=== PATIENT | male | born 1960 ===

== ENCOUNTER 2018-01-02 10:47 | Inpatient (IN) | payer MEDICARE, MEDICAID ==
[2018-01-02 10:48] VITALS: BMI 25.8
--- NOTE | 2018-01-02 12:31 | RAD ---
Date of service: 01/02/2018 HISTORY: SOB COMPARISON: Chest radiograph dated 10/15/2014. FINDINGS: LUNGS: No active pulmonary disease. PLEURA: No significant pleural effusion identified, no pneumothorax apparent. CARDIOVASCULAR: Aortic atherosclerotic calcifications. Cardiomediastinal silhouette stably enlarged OSSEOUS STRUCTURES: Unchanged. VISUALIZED UPPER ABDOMEN: Upper quadrant surgical clips redemonstrated. OTHER FINDINGS: None. IMPRESSION: No active disease.
[2018-01-02 13:00] LABS: BASO % 0.4 % (0.0-2.0); EOS # 0.1 K/uL (0.0-0.7); EOS % 1.2 % (0.0-4.0); HEMOGLOBIN 14.2 g/dL (12.0-18.0); LYMPH % 13.7 % (20.0-40.0); MEAN CELL VOLUME 96.7 fl (80.0-94.0); MEAN CORPUSCULAR HGB CONC 34.2 g/dL (33.0-37.0); MEAN PLATELET VOLUME 9.2 fl (7.2-11.7); MONO # 0.5 K/uL (0.0-0.8); MONO % 6.9 % (0.0-10.0); NEUT # 5.5 K/uL (1.8-7.0); NEUT % 77.8 % (50.0-75.0); NRBC % 0.1 % (0.0-0.0); RBC 4.3 Mil/uL (4.40-5.90); RED CELL DISTRIBUTION WIDTH 13.5 % (11.5-14.5); WHITE BLOOD COUNT 7.1 K/uL (4.8-10.8)
[2018-01-02 13:05] LABS: INR 1.1; PROTHROMBIN TIME 12.6 Seconds (9.8-13.1)
[2018-01-02 13:07] LABS: PARTIAL THROMBOPLASTIN TIME 40.4 Seconds (25.6-37.1)
[2018-01-02 13:08] LABS: ALB/GLOB RATIO 1.3 (1.0-2.1); ALBUMIN 4.2 g/dL (3.5-5.0); ALT/SGPT 50 U/L (21-72); AST/SGOT 83 U/L (17-59); BLOOD UREA NITROGEN 17 mg/dl (9-20); CALCIUM 9.6 mg/dL (8.4-10.2); GFR NON-AFRICAN AMERICAN > 60; LIPASE 49 U/L (23-300)
--- NOTE | 2018-01-02 13:18 | CT ---
Date of service: 01/02/2018 PROCEDURE: CT HEAD WITHOUT CONTRAST. HISTORY: r/o ICH COMPARISON: None available. TECHNIQUE: Axial computed tomography images were obtained through the head/brain without intravenous contrast. Radiation dose: Total exam DLP = 918.51 mGy-cm. This CT exam was performed using one or more of the following dose reduction techniques: Automated exposure control, adjustment of the mA and/or kV according to patient size, and/or use of iterative reconstruction technique. FINDINGS: HEMORRHAGE: No intracranial hemorrhage. BRAIN: No mass effect or edema. No atrophy or chronic microvascular ischemic changes. VENTRICLES: Unremarkable. No hydrocephalus. CALVARIUM: Unremarkable. PARANASAL SINUSES: Unremarkable as visualized. No significant inflammatory changes. MASTOID AIR CELLS: Unremarkable as visualized. No inflammatory changes. OTHER FINDINGS: None. IMPRESSION: No acute intracranial pathology.
--- NOTE | 2018-01-02 13:20 | CT ---
Date of service: 01/02/2018 PROCEDURE: CT Cervical Spine without contrast HISTORY: trauma r/o fx COMPARISON: None available. TECHNIQUE: Axial computed tomography images were obtained of the cervical spine without the use of intravenous contrast. Coronal and sagittal reformatted images were created and reviewed. Radiation dose: Total exam DLP = 374.3 mGy-cm. This CT exam was performed using one or more of the following dose reduction techniques: Automated exposure control, adjustment of the mA and/or kV according to patient size, and/or use of iterative reconstruction technique. FINDINGS: VERTEBRAE: No fracture. Normal alignment. No destructive bony lesion. DISCS/SPINAL CANAL/NEURAL FORAMINA: Multilevel spinal degenerative changes. PARASPINAL SOFT TISSUES: Unremarkable. OTHER FINDINGS: None. IMPRESSION: No acute fracture. Multilevel degenerative changes.
[2018-01-02] MEDS ORDERED: Sodium Chloride 0.9% 1,000 ML IV STA ×2 (14:15→15:17)
--- NOTE | 2018-01-02 15:15 | ED PDOC ---
HPI: General Adult Time Seen by Provider: 01/02/18 11:13 Chief Complaint (Nursing): Abdominal Pain Chief Complaint (Provider): fall History Per: Patient, EMS History/Exam Limitations: clinical condition Onset/Duration Of Symptoms: Unknown Current Symptoms Are (Timing): Still Present Additional Complaint(s): 57yo male presents via EMS from home where he reports a fall overnight, believes he was on ground for 8-9 hours before discovered by sister. Admits to history of parkinsons, takes medications for such but doesnt recall his neurologists name or compliance with medications. Denies current headache, chest pain or SOB. Admits to back pain, R knee pain and urinary difficulty. 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 Past Medical History Reviewed: Historical Data, Nursing Documentation, Vital Signs Vital Signs: Last Vital Signs Temp 98.5 F 01/02/18 11:00 Pulse 84 01/02/18 11:00 Resp 18 01/02/18 11:00 BP 146/82 01/02/18 11:00 Pulse Ox 99 01/02/18 11:00 - Medical History PMH: Arthritis, Asthma, CAD, CVA, Depression, HTN, Hypercholesterolemia, Parkinson's Disease Denies: Chronic Kidney Disease Comment Only: COPD (Asthma) - Family History Family History: States: Unknown Family Hx ( ) - Living Arrangements Living Arrangements: With Family - Social History Current smoker - smoking cessation education provided: No - Immunization History Hx Tetanus Toxoid Vaccination: No Hx Influenza Vaccination: Yes (04/2014) Hx Pneumococcal Vaccination: Yes (04/2014) - Home Medications Home Medications: Ambulatory Orders Medication Instructions Recorded Amantadine [Amantadine 100 mg Cap] 100 mg PO Q8 01/02/18 Apixaban [Eliquis] 2.5 mg PO DAILY 01/02/18 Carbidopa/Levodopa 1 tab PO Q8 01/02/18 [Carbidopa-Levodopa 25-250 Tab] Entacapone [Comtan] 200 mg PO Q12 01/02/18 Fenofibrate,Micronized 134 mg PO DAILY 01/02/18 [Fenofibrate] Finasteride [Proscar] 5 mg PO DAILY 01/02/18 Gabapentin [Neurontin] 600 mg PO Q8 01/02/18 Linaclotide [Linzess] 145 mcg PO DAILY 01/02/18 Lisinopril [Zestril] 2.5 mg PO DAILY 01/02/18 Pantoprazole [Protonix EC Tab] 40 mg PO DAILY 01/02/18 Pramipexole [Mirapex] 1.5 mg PO Q8 01/02/18 Risperidone [Risperdal] 1 mg PO DAILY 01/02/18 Rosuvastatin Calcium [Crestor] 10 mg PO HS 01/02/18 Sucralfate [Carafate Tab] 1 gm PO TID 01/02/18 Tamsulosin [Flomax] 0.4 mg PO QPM 01/02/18 metFORMIN [glucOPHAGE] 500 mg PO DAILY 01/02/18 - Allergies Allergies/Adverse Reactions: Allergies Allergy/AdvReac Type Severity Reaction Status Date / Time No Known Allergies Allergy Verified 11/24/14 20:22 Review of Systems Review Of Systems: ROS cannot be obtained secondary to pt's inabilty to answer questions. (poor historian) Physical Exam - Reviewed Nursing Documentation Reviewed: Yes Vital Signs Reviewed: Yes - Physical Exam Appears: Positive for: Non-toxic (parkinsonian) Head Exam: Positive for: ATRAUMATIC, NORMAL INSPECTION, NORMOCEPHALIC Skin: Positive for: Normal Color, Warm, DRY Eye Exam: Positive for: EOMI, Normal appearance, PERRL ENT: Positive for: Normal ENT Inspection Neck: Positive for: Normal, Painless ROM Cardiovascular/Chest: Positive for: Regular Rate, Rhythm Respiratory: Positive for: CNT, Normal Breath Sounds Gastrointestinal/Abdominal: Positive for: Soft. Negative for: Tenderness Back: Positive for: Normal Inspection Extremity: Positive for: Tenderness (R knee), Swelling (R knee mild) Neurologic/Psych: Positive for: Alert, Motor/Sensory Deficits (hypertonicity, parkinsonian features), Mood/Affect (flat). Negative for: Facial Droop - Laboratory Results Result Diagrams: 01/02/18 12:22 01/02/18 12:22 - ECG O2 Sat by Pulse Oximetry: 99 Medical Decision Making Medical Decision Making: workup for fall injury in 57yo male with parkinsons check CT brain/CSpine, labs and UA. r/o traumatic injury, rhabdomyolysis, CVA, dehydration, sepsis, cardiac event vs other CT brain and CSpine reports reviewed CXR negative per radiologist labs reviewed reveal elev CK c/w moderate rhabdomyolysis. IVF bolus initiated. 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 This is because of the severity of symptoms shown, intensity of services needed, and/or the medical risk in this patient being treated as an outpatient. - POA Present On Arrival: Falls Or Trauma
--- NOTE | 2018-01-02 15:32 | RAD ---
Date of service: 01/02/2018 PROCEDURE: Radiographs of the pelvis. HISTORY: fall COMPARISON: None. FINDINGS: BONES: Pelvic Bones: Unremarkable. Hips: Bilateral hip narrowing. JOINTS: Sacroiliac Joints: Unremarkable. Pubic Symphysis: Unremarkable. OTHER FINDINGS: None. IMPRESSION: No demonstrated fracture or dislocation. Bilateral hip narrowing.
--- NOTE | 2018-01-02 15:33 | RAD ---
Date of service: 01/02/2018 PROCEDURE: Right Knee Radiographs. HISTORY: fall COMPARISON: None. FINDINGS: BONES: Findings strongly suggestive of medial tibial plateau subchondral insufficiency fracture. JOINTS: Tricompartmental narrowing with degenerative spurring, worst in the medial tibial femoral compartment. JOINT EFFUSION: Large joint effusion. OTHER FINDINGS: None. IMPRESSION: Findings suggestive of medial tibial plateau subchondral insufficiency fracture. MRI can be obtained for further evaluation as clinically warranted.
--- NOTE | 2018-01-02 15:34 | RAD ---
Date of service: 01/02/2018 PROCEDURE: Radiographs of the Lumbar Spine. HISTORY: fall pain COMPARISON: No prior. FINDINGS: BONES: Normal alignment. No listhesis. No fracture. DISC SPACES: Multilevel disc space narrowing, worst at L5-S1. OTHER FINDINGS: None. IMPRESSION: No acute fracture. Multilevel degenerative changes.
[2018-01-02] MEDS ORDERED: Glucagon Recombinant 1 mg Inj IM PRN (16:05)
[2018-01-02] MEDS ORDERED: Dextrose 50% SYRINGE Inj (50 ml) IV PRN (16:05)
[2018-01-02] MEDS: Carbidopa/Levodopa 25/250 PO SCH (16:37)
[2018-01-02] MEDS: Insulin Regular 100 units/ml SC SCH (16:45)
--- NOTE | 2018-01-02 18:32 | CARD ---
APPROVED REPORT Date of service: 01/02/2018 EKG Measurement Heart [id number] <Conclusion> Normal sinus rhythm Normal ECG
[2018-01-03] MEDS: Carbidopa/Levodopa 25/250 PO SCH ×3 (01:30→16:21)
[2018-01-03] MEDS: Insulin Regular 100 units/ml SC SCH ×4 (02:18→16:35)
[2018-01-03 07:01] LABS: BASO % 0.7 % (0.0-2.0); EOS # 0.2 K/uL (0.0-0.7); EOS % 4.3 % (0.0-4.0); HEMOGLOBIN 13.8 g/dL (12.0-18.0); LYMPH % 18.1 % (20.0-40.0); MEAN CELL VOLUME 96.4 fl (80.0-94.0); MEAN CORPUSCULAR HEMOGLOBIN 32.9 pg (27.0-31.0); MEAN CORPUSCULAR HGB CONC 34.1 g/dL (33.0-37.0); MEAN PLATELET VOLUME 9.2 fl (7.2-11.7); MONO # 0.5 K/uL (0.0-0.8); MONO % 8.2 % (0.0-10.0); NEUT # 3.9 K/uL (1.8-7.0); NEUT % 68.7 % (50.0-75.0); RBC 4.18 Mil/uL (4.40-5.90); RED CELL DISTRIBUTION WIDTH 13.3 % (11.5-14.5); WHITE BLOOD COUNT 5.6 K/uL (4.8-10.8)
[2018-01-03 07:26] LABS: ALB/GLOB RATIO 1.2 (1.0-2.1); ALBUMIN 3.7 g/dL (3.5-5.0); ALT/SGPT 15 U/L (21-72); AST/SGOT 56 U/L (17-59); BLOOD UREA NITROGEN 11 mg/dl (9-20); CALCIUM 9.3 mg/dL (8.4-10.2); GFR NON-AFRICAN AMERICAN > 60
--- NOTE | 2018-01-03 07:50 | CP.PCM.HP ---
<Yanick Caceres - Last Filed: 01/03/18 09:56> History of Present Illness - History of Present Illness History of Present Illness: History taken by ED doctor, previous records and patient, patient is poor historian 57 yo male with history of hypertension, hypercholesterolemia, Parkinson disease came to the emergency room s/p fall at home. He reports went to the bathroom last night and just after get in bed he fell from bed. He believes he was on ground for 8-9 hours before discovered by sister. He takes medications for Parkinson but doesnt recall his neurologists name or compliance with medications. Patient states feeling sad for the last few weeks, denies SI/HI. Denies current headache, chest pain or SOB. Admits to back pain, R knee pain and urinary difficulty. PMH: Parkinson disease, hypercholesterolemia, HTN, osteoarthritis PSH: BPH and bladder surgery years ago FMH: Father history of stroke, mother had a history of appendicitis complicated, siblings are healthy Meds: as bellow confirmed with his pharmacy NKDA SH: denie tobacco, etoh or ilicit drug, lives with sister. Present on Admission - Present on Admission Any Indicators Present on Admission: No Review of Systems - Review of Systems All systems: reviewed and no additional remarkable complaints except (HPI) Past Patient History - Infectious Disease Hx of Infectious Diseases: None - Tetanus Immunizations Tetanus Immunization: Unknown - Past Medical History & Family History Past Medical History?: Yes - Past Social History Smoking Status: Never Smoked - CARDIAC Hx Cardiac Disorders: Yes - PULMONARY Hx Respiratory Disorders: Yes - NEUROLOGICAL Hx Neurological Disorder: Yes - HEENT Hx HEENT Problems: Yes Hx Cataracts: Yes Other/Comment: Wears eye glasses - RENAL Hx Chronic Kidney Disease: No - ENDOCRINE/METABOLIC Hx Endocrine Disorders: No - HEMATOLOGICAL/ONCOLOGICAL Hx Blood Disorders: No - INTEGUMENTARY Hx Dermatological Problems: No - MUSCULOSKELETAL/RHEUMATOLOGICAL Hx Arthritis: Yes Hx Falls: Yes - GASTROINTESTINAL Hx Gastrointestinal Disorders: Yes Hx Gastroesophageal Reflux: Yes - GENITOURINARY/GYNECOLOGICAL Hx Genitourinary Disorders: Yes Hx Prostate Problems: Yes (ENLARGED) - PSYCHIATRIC Hx Depression: Yes Hx Substance Use: No - SURGICAL HISTORY Hx Surgeries: Yes - ANESTHESIA Hx Anesthesia: Yes Hx Anesthesia Reactions: No Hx Malignant Hyperthermia: No Meds Allergies/Adverse Reactions: Allergies Allergy/AdvReac Type Severity Reaction Status Date / Time No Known Allergies Allergy Verified 11/24/14 20:22 Physical Exam - Constitutional Appears: No Acute Distress, Chronically Ill - Head Exam Head Exam: NORMAL INSPECTION - Eye Exam Eye Exam: EOMI - Respiratory Exam Respiratory Exam: Clear to Auscultation Bilateral - Cardiovascular Exam Cardiovascular Exam: REGULAR RHYTHM, +S1, +S2 - GI/Abdominal Exam GI & Abdominal Exam: Normal Bowel Sounds, Soft. absent: Distended, Tenderness - Extremities Exam Extremities exam: Negative for: pedal edema - Neurological Exam Neurological exam: Alert, Oriented x3 Additional comments: Rigidity and some spasticity in extremities noted - Skin Skin Exam: Dry, Warm Results - Vital Signs Recent Vital Signs: Last Vital Signs Temp 98.3 F 01/03/18 00:38 Pulse 77 01/03/18 00:38 Resp 20 01/03/18 00:38 BP 142/83 01/03/18 00:38 Pulse Ox 97 01/03/18 00:38 - Labs Result Diagrams: 01/03/18 06:40 01/03/18 06:40 Labs: Laboratory Results - last 24 hr 01/02/18 01/02/18 01/02/18 12:22 12:22 12:22 WBC 7.1 RBC 4.30 L Hgb 14.2 Hct 41.6 MCV 96.7 H D MCH 33.0 H MCHC 34.2 RDW 13.5 Plt Count 191 MPV 9.2 Neut % (Auto) 77.8 H Lymph % (Auto) 13.7 L Dodge % (Auto) 6.9 Eos % (Auto) 1.2 Baso % (Auto) 0.4 Neut # (Auto) 5.5 Lymph # (Auto) 1.0 Dodge # (Auto) 0.5 Eos # (Auto) 0.1 Baso # (Auto) 0.0 PT 12.6 INR 1.1 APTT 40.4 H Sodium 142 Potassium 3.7 Chloride 107 Carbon Dioxide 23 Anion Gap 16 BUN 17 Creatinine 0.7 L Est GFR ( Amer) > 60 Est GFR (Non-Af Amer) > 60 POC Glucose (mg/dL) Random Glucose 96 Calcium 9.6 Total Bilirubin 0.8 AST 83 H ALT 50 Alkaline Phosphatase 97 Total Creatine Kinase 1402 H Troponin I < 0.0120 Total Protein 7.4 Albumin 4.2 Globulin 3.2 Albumin/Globulin Ratio 1.3 Lipase 49 Alcohol, Quantitative < 10 01/02/18 01/02/18 01/02/18 16:44 18:33 21:46 WBC RBC Hgb Hct MCV MCH MCHC RDW Plt Count MPV Neut % (Auto) Lymph % (Auto) Dodge % (Auto) Eos % (Auto) Baso % (Auto) Neut # (Auto) Lymph # (Auto) Dodge # (Auto) Eos # (Auto) Baso # (Auto) PT INR APTT Sodium Potassium Chloride Carbon Dioxide Anion Gap BUN Creatinine Est GFR ( Amer) Est GFR (Non-Af Amer) POC Glucose (mg/dL) 75 85 Random Glucose Calcium Total Bilirubin AST ALT Alkaline Phosphatase Total Creatine Kinase Troponin I < 0.0120 Total Protein Albumin Globulin Albumin/Globulin Ratio Lipase Alcohol, Quantitative 01/03/18 01/03/18 01/03/18 06:07 06:40 06:40 WBC 5.6 RBC 4.18 L Hgb 13.8 Hct 40.3 MCV 96.4 H MCH 32.9 H MCHC 34.1 RDW 13.3 Plt Count 179 MPV 9.2 Neut % (Auto) 68.7 Lymph % (Auto) 18.1 L Dodge % (Auto) 8.2 Eos % (Auto) 4.3 H Baso % (Auto) 0.7 Neut # (Auto) 3.9 Lymph # (Auto) 1.0 Dodge # (Auto) 0.5 Eos # (Auto) 0.2 Baso # (Auto) 0.0 PT INR APTT Sodium 142 Potassium 3.8 Chloride 109 H Carbon Dioxide 24 Anion Gap 13 BUN 11 Creatinine 0.7 L Est GFR ( Amer) > 60 Est GFR (Non-Af Amer) > 60 POC Glucose (mg/dL) 91 Random Glucose 91 Calcium 9.3 Total Bilirubin 0.8 AST 56 ALT 15 L D Alkaline Phosphatase 86 Total Creatine Kinase 841 H Troponin I < 0.0120 Total Protein 6.7 Albumin 3.7 Globulin 3.1 Albumin/Globulin Ratio 1.2 Lipase Alcohol, Quantitative Assessment & Plan - Assessment and Plan (Free Text) Assessment: 57 yo male with history of hypertension, hypercholesterolemia, Parkinson disease admitted due to rhabdomyolysis. Plan: labs reviewed CPK elevated, Cr wnl Head and C spine CT: negative for fracture or bleeding CXR negative for acute lung disease IV fluids restart home meds c/o sadness Psych consulted, input appreciated Neuro consulted, input appreciated f/u labs in am Rest of plan as ordered Case seen and examined with Dr El <Deonte El - Last Filed: 01/05/18 15:51> Results - Vital Signs Recent Vital Signs: Last Vital Signs Temp 97.8 F 01/05/18 09:00 Pulse 69 01/05/18 09:01 Resp 19 01/05/18 09:00 BP 123/79 01/05/18 09:01 Pulse Ox 97 01/05/18 09:00 - Labs Result Diagrams: 01/05/18 06:00 01/05/18 06:00 Labs: Laboratory Results - last 24 hr 01/04/18 01/04/18 01/04/18 02:15 15:46 19:51 WBC RBC Hgb Hct MCV MCH MCHC RDW Plt Count MPV Neut % (Auto) Lymph % (Auto) Dodge % (Auto) Eos % (Auto) Baso % (Auto) Neut # (Auto) Lymph # (Auto) Dodge # (Auto) Eos # (Auto) Baso # (Auto) Sodium Potassium Chloride Carbon Dioxide Anion Gap BUN Creatinine Est GFR ( Amer) Est GFR (Non-Af Amer) POC Glucose (mg/dL) 118 H 148 H Random Glucose Uric Acid Calcium Phosphorus Magnesium Total Bilirubin AST ALT Alkaline Phosphatase Total Creatine Kinase Troponin I < 0.0120 Total Protein Albumin Globulin Albumin/Globulin Ratio 01/04/18 01/04/18 01/04/18 20:13 20:13 21:16 WBC 6.7 RBC 4.30 L Hgb 13.9 Hct 41.8 MCV 97.2 H MCH 32.3 H MCHC 33.3 RDW 13.4 Plt Count 203 MPV 9.1 Neut % (Auto) 70.8 Lymph % (Auto) 16.5 L Dodge % (Auto) 7.7 Eos % (Auto) 4.4 H Baso % (Auto) 0.6 Neut # (Auto) 4.7 Lymph # (Auto) 1.1 Dodge # (Auto) 0.5 Eos # (Auto) 0.3 Baso # (Auto) 0.0 Sodium 140 Potassium 4.0 Chloride 106 Carbon Dioxide 22 Anion Gap 16 BUN 12 Creatinine 0.9 Est GFR ( Amer) > 60 Est GFR (Non-Af Amer) > 60 POC Glucose (mg/dL) 143 H Random Glucose 140 H Uric Acid Calcium 9.2 Phosphorus 4.0 Magnesium 1.7 Total Bilirubin 0.3 AST 31 ALT 33 Alkaline Phosphatase 93 Total Creatine Kinase 203 H Troponin I < 0.0120 Total Protein 7.1 Albumin 3.8 Globulin 3.2 Albumin/Globulin Ratio 1.2 01/05/18 01/05/18 01/05/18 06:00 06:00 06:35 WBC 5.5 RBC 4.25 L Hgb 13.8 Hct 41.2 MCV 97.0 H MCH 32.4 H MCHC 33.4 RDW 13.4 Plt Count 183 MPV 9.2 Neut % (Auto) 60.8 Lymph % (Auto) 23.9 Dodge % (Auto) 8.0 Eos % (Auto) 6.7 H Baso % (Auto) 0.6 Neut # (Auto) 3.3 Lymph # (Auto) 1.3 Dodge # (Auto) 0.4 Eos # (Auto) 0.4 Baso # (Auto) 0.0 Sodium 141 Potassium 4.0 Chloride 105 Carbon Dioxide 24 Anion Gap 16 BUN 11 Creatinine 0.7 L Est GFR ( Amer) > 60 Est GFR (Non-Af Amer) > 60 POC Glucose (mg/dL) 97 Random Glucose 102 Uric Acid 5.8 Calcium 9.1 Phosphorus Magnesium Total Bilirubin 0.5 AST 22 ALT 19 L D Alkaline Phosphatase 90 Total Creatine Kinase 149 Troponin I Total Protein 6.6 Albumin 3.6 Globulin 2.9 Albumin/Globulin Ratio 1.2 01/05/18 11:10 WBC RBC Hgb Hct MCV MCH MCHC RDW Plt Count MPV Neut % (Auto) Lymph % (Auto) Dodge % (Auto) Eos % (Auto) Baso % (Auto) Neut # (Auto) Lymph # (Auto) Dodge # (Auto) Eos # (Auto) Baso # (Auto) Sodium Potassium Chloride Carbon Dioxide Anion Gap BUN Creatinine Est GFR ( Amer) Est GFR (Non-Af Amer) POC Glucose (mg/dL) 151 H Random Glucose Uric Acid Calcium Phosphorus Magnesium Total Bilirubin AST ALT Alkaline Phosphatase Total Creatine Kinase Troponin I Total Protein Albumin Globulin Albumin/Globulin Ratio Assessment & Plan - Assessment and Plan (Free Text) Assessment: Patient was personally seen and examined by me in rounds with residents. Available labs and diagnostic data reviewed. Case, Patient's condition and management plan discussed with residents in rounds. Agree with resident's progress note. Plan: As ordered.
--- NOTE | 2018-01-03 07:57 | CP.PCM.CON ---
History of Present Illness - History of Present Illness History of Present Illness: Psychiatry consult called to evaluate for depression CC: "I fell at home" HPI: 57 yo male w/ h/o Parkinson's disease admitted s/p fall. He denies current depression/anxiety/AH/VH/paranoia/delusions/SI/HI. He denies psychiatric histo ry and does not know why he is currently prescribed Risperdal. He denies acute psychotic symptoms. A + O x 3. Patient is a limited historian. PMHx: As per chart- Arthritis, Asthma, CAD, CVA, HTN, Hypercholesterolemia, Parkinson's Disease PPHx: Denies past psychiatric history ALL: NKDA Impression: 57 yo male, currently denies depression/anxiety/psychotic symptoms; likely has depressed/constricted affect from Parkinson's Disease (Masked Faces). -Recommend to hold Risperdal at this time as patient denies acute psychotic symptoms and Risperdal can worsen Parkinsonian symptoms; recommend primary team to obtain collateral history from family about the reason the patient was prescribed this medication and if he has taken it recently -No acute medications indicated for depression -No acute psychiatric admission indicated Past Patient History - Infectious Disease Hx of Infectious Diseases: None - Tetanus Immunizations Tetanus Immunization: Unknown - Past Medical History & Family History Past Medical History?: Yes - Past Social History Smoking Status: Never Smoked - CARDIAC Hx Cardiac Disorders: Yes - PULMONARY Hx Respiratory Disorders: Yes - NEUROLOGICAL Hx Neurological Disorder: Yes - HEENT Hx HEENT Problems: Yes Hx Cataracts: Yes Other/Comment: Wears eye glasses - RENAL Hx Chronic Kidney Disease: No - ENDOCRINE/METABOLIC Hx Endocrine Disorders: No - HEMATOLOGICAL/ONCOLOGICAL Hx Blood Disorders: No - INTEGUMENTARY Hx Dermatological Problems: No - MUSCULOSKELETAL/RHEUMATOLOGICAL Hx Arthritis: Yes Hx Falls: Yes - GASTROINTESTINAL Hx Gastrointestinal Disorders: Yes Hx Gastroesophageal Reflux: Yes - GENITOURINARY/GYNECOLOGICAL Hx Genitourinary Disorders: Yes Hx Prostate Problems: Yes (ENLARGED) - PSYCHIATRIC Hx Depression: Yes Hx Substance Use: No - SURGICAL HISTORY Hx Surgeries: Yes - ANESTHESIA Hx Anesthesia: Yes Hx Anesthesia Reactions: No Hx Malignant Hyperthermia: No Meds Allergies/Adverse Reactions: Allergies Allergy/AdvReac Type Severity Reaction Status Date / Time No Known Allergies Allergy Verified 11/24/14 20:22 - Medications Medications: Current Medications Amantadine HCl (Amantadine 100 Mg Cap) 100 mg PO Q8 [facility] Last Admin: 01/03/18 01:30 Dose: 100 mg Atorvastatin Calcium (Lipitor) 20 mg PO HS [facility] Last Admin: 01/02/18 22:55 Dose: 20 mg Carbidopa/Levodopa (Sinemet) 1 tab PO Q8 [facility] Last Admin: 01/03/18 01:30 Dose: 1 tab Dextrose (Dextrose 50% Inj) 0 ml IV STAT PRN; Protocol PRN Reason: Hypoglycemia Protocol Dextrose (Glutose 15) 0 gm PO ONCE PRN; Protocol PRN Reason: Hypoglycemia Protocol Docusate Sodium (Colace) 100 mg PO BID [facility] Last Admin: 01/02/18 16:42 Dose: 100 mg Enoxaparin Sodium (Lovenox) 40 mg SC DAILY [facility]; Protocol Entacapone (Comtan) 200 mg PO Q12 [facility] Last Admin: 01/02/18 22:55 Dose: 200 mg Finasteride (Proscar) 5 mg PO DAILY [facility] Gabapentin (Neurontin) 600 mg PO Q8 [facility] Last Admin: 01/03/18 01:30 Dose: 600 mg Glucagon (Glucagen Diagnostic Kit) 0 mg IM STAT PRN; Protocol PRN Reason: Hypoglycemia Protocol Insulin Human Regular (Humulin R) 0 units SC ACCU-CHECK [facility]; Protocol Last Admin: 01/03/18 02:18 Dose: Not Given Lisinopril (Zestril) 2.5 mg PO DAILY [facility] Metformin HCl (Glucophage) 500 mg PO DAILY [facility] Pantoprazole Sodium (Protonix Ec Tab) 40 mg PO DAILY [facility] Pramipexole Dihydrochloride (Mirapex) 1.5 mg PO Q8 [facility] Last Admin: 01/03/18 01:30 Dose: 1.5 mg Risperidone (Risperdal Tab) 1 mg PO DAILY [facility] Sucralfate (Carafate Tab) 1 gm PO TID [facility] Last Admin: 01/02/18 18:20 Dose: 1 gm Tamsulosin HCl (Flomax) 0.4 mg PO QPM [facility] Last Admin: 01/02/18 18:22 Dose: 0.4 mg Results - Vital Signs Recent Vital Signs: Last Vital Signs Temp 98.3 F 01/03/18 00:38 Pulse 77 01/03/18 00:38 Resp 20 01/03/18 00:38 BP 142/83 01/03/18 00:38 Pulse Ox 97 01/03/18 00:38 - Labs Result Diagrams: 01/03/18 06:40 01/03/18 06:40 Labs: Laboratory Results - last 24 hr 01/02/18 01/02/18 01/02/18 12:22 12:22 12:22 WBC 7.1 RBC 4.30 L Hgb 14.2 Hct 41.6 MCV 96.7 H D MCH 33.0 H MCHC 34.2 RDW 13.5 Plt Count 191 MPV 9.2 Neut % (Auto) 77.8 H Lymph % (Auto) 13.7 L [place] % (Auto) 6.9 Eos % (Auto) 1.2 Baso % (Auto) 0.4 Neut # (Auto) 5.5 Lymph # (Auto) 1.0 Branch # (Auto) 0.5 Eos # (Auto) 0.1 Baso # (Auto) 0.0 PT 12.6 INR 1.1 APTT 40.4 H Sodium 142 Potassium 3.7 Chloride 107 Carbon Dioxide 23 Anion Gap 16 BUN 17 Creatinine 0.7 L Est GFR ( Amer) > 60 Est GFR (Non-Af Amer) > 60 POC Glucose (mg/dL) Random Glucose 96 Calcium 9.6 Total Bilirubin 0.8 AST 83 H ALT 50 Alkaline Phosphatase 97 Total Creatine Kinase 1402 H Troponin I < 0.0120 Total Protein 7.4 Albumin 4.2 Globulin 3.2 Albumin/Globulin Ratio 1.3 Lipase 49 Alcohol, Quantitative < 10 01/02/18 01/02/18 01/02/18 16:44 18:33 21:46 WBC RBC Hgb Hct MCV MCH MCHC RDW Plt Count MPV Neut % (Auto) Lymph % (Auto) Branch % (Auto) Eos % (Auto) Baso % (Auto) Neut # (Auto) Lymph # (Auto) Branch # (Auto) Eos # (Auto) Baso # (Auto) PT INR APTT Sodium Potassium Chloride Carbon Dioxide Anion Gap BUN Creatinine Est GFR ( Amer) Est GFR (Non-Af Amer) POC Glucose (mg/dL) 75 85 Random Glucose Calcium Total Bilirubin AST ALT Alkaline Phosphatase Total Creatine Kinase Troponin I < 0.0120 Total Protein Albumin Globulin Albumin/Globulin Ratio Lipase Alcohol, Quantitative 01/03/18 01/03/18 01/03/18 06:07 06:40 06:40 WBC 5.6 RBC 4.18 L Hgb 13.8 Hct 40.3 MCV 96.4 H MCH 32.9 H MCHC 34.1 RDW 13.3 Plt Count 179 MPV 9.2 Neut % (Auto) 68.7 Lymph % (Auto) 18.1 L [place] % (Auto) 8.2 Eos % (Auto) 4.3 H Baso % (Auto) 0.7 Neut # (Auto) 3.9 Lymph # (Auto) 1.0 Branch # (Auto) 0.5 Eos # (Auto) 0.2 Baso # (Auto) 0.0 PT INR APTT Sodium 142 Potassium 3.8 Chloride 109 H Carbon Dioxide 24 Anion Gap 13 BUN 11 Creatinine 0.7 L Est GFR ( Amer) > 60 Est GFR (Non-Af Amer) > 60 POC Glucose (mg/dL) 91 Random Glucose 91 Calcium 9.3 Total Bilirubin 0.8 AST 56 ALT 15 L D Alkaline Phosphatase 86 Total Creatine Kinase 841 H Troponin I < 0.0120 Total Protein 6.7 Albumin 3.7 Globulin 3.1 Albumin/Globulin Ratio 1.2 Lipase Alcohol, Quantitative
[2018-01-03] MEDS: Pantoprazole 40 mg EC Tab PO SCH (10:51)
[2018-01-03 11:31] LABS: SQUAMOUS EPITHIAL < 1 /hpf (0-5); URINE BILIRUBIN NEGATIVE (NEGATIVE); URINE BLOOD NEGATIVE (NEGATIVE); URINE CLARITY CLEAR (Clear); URINE COLOR YELLOW (YELLOW); URINE GLUCOSE (UA) NEG (Normal); URINE LEUKOCYTE ESTERASE NEG Leu/uL (Negative); URINE PROTEIN NEGATIVE (NEGATIVE)
[2018-01-03] MEDS: Enoxaparin 40 mg Syringe SC SCH (11:46)
--- NOTE | 2018-01-03 14:54 | CP.PCM.CON ---
History of Present Illness - History of Present Illness History of Present Illness: Neurology Consultation Note: Mr. Kriss Moya is a 57-year-old man with a past medical history of Arthritis, Asthma, CAD, CVA, HTN, Hypercholesterolemia, Parkinson's Disease (on Mirapex, Sinemet and amantadine), who is admitted after a fall and is on Risperdal for an unknown reason. Neurology was consulted for PD management. Review of Systems - Review of Systems Systems not reviewed;Unavailable: Altered Mental Status Past Patient History - Infectious Disease Hx of Infectious Diseases: None - Tetanus Immunizations Tetanus Immunization: Unknown - Past Medical History & Family History Past Medical History?: Yes - Past Social History Smoking Status: Never Smoked - CARDIAC Hx Cardiac Disorders: Yes - PULMONARY Hx Respiratory Disorders: Yes - NEUROLOGICAL Hx Neurological Disorder: Yes - HEENT Hx HEENT Problems: Yes Hx Cataracts: Yes Other/Comment: Wears eye glasses - RENAL Hx Chronic Kidney Disease: No - ENDOCRINE/METABOLIC Hx Endocrine Disorders: No - HEMATOLOGICAL/ONCOLOGICAL Hx Blood Disorders: No - INTEGUMENTARY Hx Dermatological Problems: No - MUSCULOSKELETAL/RHEUMATOLOGICAL Hx Arthritis: Yes Hx Falls: Yes - GASTROINTESTINAL Hx Gastrointestinal Disorders: Yes Hx Gastroesophageal Reflux: Yes - GENITOURINARY/GYNECOLOGICAL Hx Genitourinary Disorders: Yes Hx Prostate Problems: Yes (ENLARGED) - PSYCHIATRIC Hx Depression: Yes Hx Substance Use: No - SURGICAL HISTORY Hx Surgeries: Yes - ANESTHESIA Hx Anesthesia: Yes Hx Anesthesia Reactions: No Hx Malignant Hyperthermia: No Meds Allergies/Adverse Reactions: Allergies Allergy/AdvReac Type Severity Reaction Status Date / Time No Known Allergies Allergy Verified 11/24/14 20:22 - Medications Medications: Current Medications Amantadine HCl (Amantadine 100 Mg Cap) 100 mg PO Q8 [facility] Last Admin: 01/03/18 11:47 Dose: 100 mg Atorvastatin Calcium (Lipitor) 20 mg PO HS [facility] Last Admin: 01/02/18 22:55 Dose: 20 mg Carbidopa/Levodopa (Sinemet) 1 tab PO Q8 [facility] Last Admin: 01/03/18 11:49 Dose: 1 tab Dextrose (Dextrose 50% Inj) 0 ml IV STAT PRN; Protocol PRN Reason: Hypoglycemia Protocol Dextrose (Glutose 15) 0 gm PO ONCE PRN; Protocol PRN Reason: Hypoglycemia Protocol Docusate Sodium (Colace) 100 mg PO BID [facility] Last Admin: 01/03/18 11:48 Dose: 100 mg Enoxaparin Sodium (Lovenox) 40 mg SC DAILY [facility]; Protocol Last Admin: 01/03/18 11:46 Dose: 40 mg Entacapone (Comtan) 200 mg PO Q12 [facility] Last Admin: 01/03/18 11:50 Dose: 200 mg Finasteride (Proscar) 5 mg PO DAILY [facility] Last Admin: 01/03/18 11:50 Dose: 5 mg Gabapentin (Neurontin) 600 mg PO Q8 [facility] Last Admin: 01/03/18 01:30 Dose: 600 mg Glucagon (Glucagen Diagnostic Kit) 0 mg IM STAT PRN; Protocol PRN Reason: Hypoglycemia Protocol Insulin Human Regular (Humulin R) 0 units SC ACCU-CHECK [facility]; Protocol Last Admin: 01/03/18 12:05 Dose: Not Given Lactulose (Enulose) 20 gm PO DAILY PRN PRN Reason: Constipation Lisinopril (Zestril) 2.5 mg PO DAILY [facility] Last Admin: 01/03/18 11:46 Dose: 2.5 mg Metformin HCl (Glucophage) 500 mg PO DAILY [facility] Last Admin: 01/03/18 11:50 Dose: 500 mg Pantoprazole Sodium (Protonix Ec Tab) 40 mg PO DAILY [facility] Last Admin: 01/03/18 10:51 Dose: 40 mg Pramipexole Dihydrochloride (Mirapex) 1.5 mg PO Q8 [facility] Last Admin: 01/03/18 11:45 Dose: 1.5 mg Risperidone (Risperdal Tab) 1 mg PO DAILY [facility] Last Admin: 01/03/18 11:59 Dose: Not Given Sucralfate (Carafate Tab) 1 gm PO TID [facility] Last Admin: 01/03/18 11:44 Dose: 1 gm Tamsulosin HCl (Flomax) 0.4 mg PO QPM [facility] Last Admin: 01/02/18 18:22 Dose: 0.4 mg Physical Exam - Constitutional Appears: Well - Head Exam Head Exam: ATRAUMATIC, NORMAL INSPECTION, NORMOCEPHALIC - Eye Exam Eye Exam: EOMI, Normal appearance, PERRL - ENT Exam ENT Exam: Mucous Membranes Moist, Normal Exam - Neck Exam Neck exam: Positive for: Normal Inspection - Respiratory Exam Respiratory Exam: Clear to Auscultation Bilateral, NORMAL BREATHING PATTERN - Cardiovascular Exam Cardiovascular Exam: REGULAR RHYTHM, +S1, +S2 - GI/Abdominal Exam GI & Abdominal Exam: Normal Bowel Sounds, Soft. absent: Tenderness - Rectal Exam Rectal Exam: Deferred - Neurological Exam Neurological exam: Abnormal Gait, Alert, CN II-XII Intact, Oriented x3, Reflexes Normal Additional comments: Slight Tremor, mild rigidity, no cogwheeling, but has bradykinesia and flat affect - Psychiatric Exam Psychiatric exam: Normal Affect, Normal Mood Results - Vital Signs Recent Vital Signs: Last Vital Signs Temp 98.2 F 01/03/18 08:03 Pulse 76 01/03/18 11:46 Resp 20 01/03/18 08:03 BP 145/84 01/03/18 11:46 Pulse Ox 98 01/03/18 08:03 - Labs Result Diagrams: 01/03/18 06:40 01/03/18 06:40 Labs: Laboratory Results - last 24 hr 01/02/18 01/02/18 01/02/18 16:44 18:33 21:46 WBC RBC Hgb Hct MCV MCH MCHC RDW Plt Count MPV Neut % (Auto) Lymph % (Auto) [place] % (Auto) Eos % (Auto) Baso % (Auto) Neut # (Auto) Lymph # (Auto) [place] # (Auto) Eos # (Auto) Baso # (Auto) Sodium Potassium Chloride Carbon Dioxide Anion Gap BUN Creatinine Est GFR ( Amer) Est GFR (Non-Af Amer) POC Glucose (mg/dL) 75 85 Random Glucose Calcium Total Bilirubin AST ALT Alkaline Phosphatase Total Creatine Kinase Troponin I < 0.0120 Total Protein Albumin Globulin Albumin/Globulin Ratio Urine Color Urine Clarity Urine pH Ur Specific [place] Urine Protein Urine Glucose (UA) Urine Ketones Urine Blood Urine Nitrate Urine Bilirubin Urine Urobilinogen Ur Leukocyte Esterase Urine RBC (Auto) Urine Microscopic WBC Ur Squamous Epith Cells 01/03/18 01/03/18 01/03/18 06:07 06:40 06:40 WBC 5.6 RBC 4.18 L Hgb 13.8 Hct 40.3 MCV 96.4 H MCH 32.9 H MCHC 34.1 RDW 13.3 Plt Count 179 MPV 9.2 Neut % (Auto) 68.7 Lymph % (Auto) 18.1 L [place] % (Auto) 8.2 Eos % (Auto) 4.3 H Baso % (Auto) 0.7 Neut # (Auto) 3.9 Lymph # (Auto) 1.0 [place] # (Auto) 0.5 Eos # (Auto) 0.2 Baso # (Auto) 0.0 Sodium 142 Potassium 3.8 Chloride 109 H Carbon Dioxide 24 Anion Gap 13 BUN 11 Creatinine 0.7 L Est GFR ( Amer) > 60 Est GFR (Non-Af Amer) > 60 POC Glucose (mg/dL) 91 Random Glucose 91 Calcium 9.3 Total Bilirubin 0.8 AST 56 ALT 15 L D Alkaline Phosphatase 86 Total Creatine Kinase 841 H Troponin I < 0.0120 Total Protein 6.7 Albumin 3.7 Globulin 3.1 Albumin/Globulin Ratio 1.2 Urine Color Urine Clarity Urine pH Ur Specific [place] Urine Protein Urine Glucose (UA) Urine Ketones Urine Blood Urine Nitrate Urine Bilirubin Urine Urobilinogen Ur Leukocyte Esterase Urine RBC (Auto) Urine Microscopic WBC Ur Squamous Epith Cells 01/03/18 01/03/18 11:08 11:17 WBC RBC Hgb Hct MCV MCH MCHC RDW Plt Count MPV Neut % (Auto) Lymph % (Auto) [place] % (Auto) Eos % (Auto) Baso % (Auto) Neut # (Auto) Lymph # (Auto) [place] # (Auto) Eos # (Auto) Baso # (Auto) Sodium Potassium Chloride Carbon Dioxide Anion Gap BUN Creatinine Est GFR ( Amer) Est GFR (Non-Af Amer) POC Glucose (mg/dL) 127 H Random Glucose Calcium Total Bilirubin AST ALT Alkaline Phosphatase Total Creatine Kinase Troponin I Total Protein Albumin Globulin Albumin/Globulin Ratio Urine Color Yellow Urine Clarity Clear Urine pH 6.0 Ur Specific [place] 1.014 Urine Protein Negative Urine Glucose (UA) Neg Urine Ketones Trace Urine Blood Negative Urine Nitrate Negative Urine Bilirubin Negative Urine Urobilinogen 2.0 Ur Leukocyte Esterase Neg Urine RBC (Auto) < 1 Urine Microscopic WBC 1 Ur Squamous Epith Cells < 1 Assessment & Plan (1) Parkinson disease Assessment and Plan: Continue current Parkinsons medications and avoid using dopamine blocking agents like Risperdal. Follow up with outpatient neurology. Thank you. Status: Chronic Priority: Low
[2018-01-04] MEDS: Insulin Regular 100 units/ml SC SCH ×5 (00:13→22:11)
[2018-01-04] MEDS: Carbidopa/Levodopa 25/250 PO SCH ×3 (00:16→17:50)
--- NOTE | 2018-01-04 06:23 | PQF ---
PROVIDER RESPONSE TEXT: fall REVIEWER QUERY TEXT: Clarification of Clinical Diagnostic Findings Specificity is required whether the rhabdomyolysis is traumatic or not. OR: Unable to determine ER: via EMS from home: he reports a fall overnight, believes he was on ground for 8-9 hours before di scovered by sister; hx.of parkinsons, takes meds for such .Admits to back pain, R knee pain and urina ry difficulty. -labs reviewed reveal elev CK c/w moderate rhabdomyolysis. IVF bolus initiated. Clinical Imp: Rhabdomyolysis, Parkinson disease POA: Falls Or Trauma H and P; PMH:Parkinson disease, hypercholesterolemia, HTN, osteoarthritis -He reports went to the bathroom last night and just after get in bed he fell from bed. --admitted due to rhabdomyolysis. The patient's Clinical Indicators include: - Query created by: Breana Garcia on 01/03/2018 3:30 PM Electronically signed by: Deonte El 01/04/2018 6:19 AM
[2018-01-04 06:25] LABS: HEMOGLOBIN 14.1 g/dL (12.0-18.0); MEAN CELL VOLUME 96.9 fl (80.0-94.0); MEAN CORPUSCULAR HEMOGLOBIN 32.4 pg (27.0-31.0); MEAN CORPUSCULAR HGB CONC 33.5 g/dL (33.0-37.0); RBC 4.34 Mil/uL (4.40-5.90); RED CELL DISTRIBUTION WIDTH 13.3 % (11.5-14.5); WHITE BLOOD COUNT 5.2 K/uL (4.8-10.8)
[2018-01-04 06:47] LABS: ALB/GLOB RATIO 1.2 (1.0-2.1); ALBUMIN 3.9 g/dL (3.5-5.0); ALT/SGPT 21 U/L (21-72); AST/SGOT 37 U/L (17-59); BLOOD UREA NITROGEN 11 mg/dl (9-20); CALCIUM 9.3 mg/dL (8.4-10.2); GFR NON-AFRICAN AMERICAN > 60
--- NOTE | 2018-01-04 07:25 | CP.PCM.PN ---
<Nithin Prather - Last Filed: 01/04/18 18:43> Subjective - Date & Time of Evaluation Date of Evaluation: 01/04/18 Time of Evaluation: 07:05 - Subjective Subjective: 57 y/o M seen and examined by bedside with Dr El. Pt is awake, not able to explains himself, tries to talk in Chinese about needles in her right lower extremities. Pt afebrile, tolerating PO with NO acute events overnight. Objective - Vital Signs/Intake and Output Vital Signs (last 24 hours): Temp Pulse Resp BP Pulse Ox 98.3 F 82 18 119/68 97 01/04/18 00:06 01/04/18 00:06 01/04/18 00:06 01/04/18 00:06 01/04/18 00:06 - Medications Medications: Current Medications Acetaminophen (Tylenol 325mg Tab) 650 mg PO Q6 PRN PRN Reason: Pain, Mild (1-3) Last Admin: 01/03/18 20:26 Dose: 650 mg Amantadine HCl (Amantadine 100 Mg Cap) 100 mg PO Q8 [facility] Last Admin: 01/04/18 00:16 Dose: 100 mg Atorvastatin Calcium (Lipitor) 20 mg PO HS [facility] Last Admin: 01/03/18 23:19 Dose: Not Given Carbidopa/Levodopa (Sinemet) 1 tab PO Q8 [facility] Last Admin: 01/04/18 00:16 Dose: 1 tab Dextrose (Dextrose 50% Inj) 0 ml IV STAT PRN; Protocol PRN Reason: Hypoglycemia Protocol Dextrose (Glutose 15) 0 gm PO ONCE PRN; Protocol PRN Reason: Hypoglycemia Protocol Docusate Sodium (Colace) 100 mg PO BID [facility] Last Admin: 01/03/18 16:22 Dose: 100 mg Enoxaparin Sodium (Lovenox) 40 mg SC DAILY [facility]; Protocol Last Admin: 01/03/18 11:46 Dose: 40 mg Entacapone (Comtan) 200 mg PO Q12 [facility] Last Admin: 01/03/18 23:19 Dose: 200 mg Finasteride (Proscar) 5 mg PO DAILY [facility] Last Admin: 01/03/18 11:50 Dose: 5 mg Gabapentin (Neurontin) 600 mg PO Q8 [facility] Last Admin: 01/04/18 00:19 Dose: 600 mg Glucagon (Glucagen Diagnostic Kit) 0 mg IM STAT PRN; Protocol PRN Reason: Hypoglycemia Protocol Insulin Human Regular (Humulin R) 0 units SC ACCU-CHECK [facility]; Protocol Last Admin: 01/04/18 00:13 Dose: Not Given Lactulose (Enulose) 20 gm PO DAILY PRN PRN Reason: Constipation Last Admin: 01/03/18 16:34 Dose: 20 gm Lisinopril (Zestril) 2.5 mg PO DAILY [facility] Last Admin: 01/03/18 11:46 Dose: 2.5 mg Metformin HCl (Glucophage) 500 mg PO DAILY [facility] Last Admin: 01/03/18 11:50 Dose: 500 mg Pantoprazole Sodium (Protonix Ec Tab) 40 mg PO DAILY [facility] Last Admin: 01/03/18 10:51 Dose: 40 mg Pramipexole Dihydrochloride (Mirapex) 1.5 mg PO Q8 [facility] Last Admin: 01/04/18 00:16 Dose: 1.5 mg Risperidone (Risperdal Tab) 1 mg PO DAILY [facility] Last Admin: 01/03/18 11:59 Dose: Not Given Sucralfate (Carafate Tab) 1 gm PO TID [facility] Last Admin: 01/03/18 16:20 Dose: 1 gm Tamsulosin HCl (Flomax) 0.4 mg PO QPM [facility] Last Admin: 01/03/18 18:43 Dose: 0.4 mg - Labs Labs: 01/04/18 05:55 01/04/18 05:55 PT 12.6 Seconds (9.8-13.1) 01/02/18 12:22 INR 1.1 01/02/18 12:22 APTT 40.4 Seconds (25.6-37.1) H 01/02/18 12:22 - Constitutional Appears: No Acute Distress - Head Exam Head Exam: ATRAUMATIC, NORMAL INSPECTION - Eye Exam Eye Exam: EOMI, Normal appearance - ENT Exam ENT Exam: Mucous Membranes Dry - Neck Exam Neck Exam: Full ROM, Normal Inspection. absent: Meningismus - Respiratory Exam Respiratory Exam: NORMAL BREATHING PATTERN. absent: Rhonchi, Wheezes - Cardiovascular Exam Cardiovascular Exam: REGULAR RHYTHM, +S1, +S2 - GI/Abdominal Exam GI & Abdominal Exam: Soft. absent: Distended, Guarding, Rigid, Tenderness - Extremities Exam Extremities Exam: Normal Inspection. absent: Calf Tenderness Additional comments: Bilateral lower extremities: no presence of erythema joint swelling or edema, sensation seems intact to light touch b/l, able to move slowly his legs. - Neurological Exam Neurological Exam: Alert, Awake Assessment and Plan - Assessment and Plan (Free Text) Assessment: 57 y/o male with history of hypertension, hypercholesterolemia, Parkinson disease admitted due to rhabdomyolysis. -Head and C spine CT: negative for fracture or bleeding -CXR negative for acute lung disease PLAN: --CPK serum level trending down. --Physical therapy evaluation requested. --Continue IV fluids. --Psych consulted, input appreciated. Risperidal on hold. --Neuro consulted, input appreciated. F/U outpatient. --F/U tomorrow's CPK level. --Rest of plan as ordered <Deonte El - Last Filed: 01/05/18 15:49> Objective - Vital Signs/Intake and Output Vital Signs (last 24 hours): Temp Pulse Resp BP Pulse Ox 97.8 F 69 19 123/79 97 01/05/18 09:00 01/05/18 09:01 01/05/18 09:00 01/05/18 09:01 01/05/18 09:00 - Medications Medications: Current Medications Acetaminophen (Tylenol 325mg Tab) 650 mg PO Q6 PRN PRN Reason: Pain, Mild (1-3) Last Admin: 01/03/18 20:26 Dose: 650 mg Amantadine HCl (Amantadine 100 Mg Cap) 100 mg PO Q8 [facility] Last Admin: 01/05/18 08:59 Dose: 100 mg Atorvastatin Calcium (Lipitor) 20 mg PO HS [facility] Last Admin: 01/04/18 23:13 Dose: 20 mg Carbidopa/Levodopa (Sinemet) 1 tab PO Q8 [facility] Last Admin: 01/05/18 09:02 Dose: 1 tab Dextrose (Dextrose 50% Inj) 0 ml IV STAT PRN; Protocol PRN Reason: Hypoglycemia Protocol Dextrose (Glutose 15) 0 gm PO ONCE PRN; Protocol PRN Reason: Hypoglycemia Protocol Docusate Sodium (Colace) 100 mg PO BID [facility] Last Admin: 01/05/18 09:00 Dose: 100 mg Enoxaparin Sodium (Lovenox) 40 mg SC DAILY [facility]; Protocol Last Admin: 01/05/18 08:59 Dose: 40 mg Entacapone (Comtan) 200 mg PO Q12 [facility] Last Admin: 01/05/18 09:00 Dose: 200 mg Finasteride (Proscar) 5 mg PO DAILY [facility] Last Admin: 01/05/18 09:00 Dose: 5 mg Gabapentin (Neurontin) 600 mg PO Q8 [facility] Last Admin: 01/05/18 09:00 Dose: 600 mg Glucagon (Glucagen Diagnostic Kit) 0 mg IM STAT PRN; Protocol PRN Reason: Hypoglycemia Protocol Insulin Human Regular (Humulin R) 0 units SC ACCU-CHECK [facility]; Protocol Last Admin: 01/05/18 12:57 Dose: 1 unit Lactulose (Enulose) 20 gm PO DAILY PRN PRN Reason: Constipation Last Admin: 01/04/18 10:33 Dose: 20 gm Lisinopril (Zestril) 2.5 mg PO DAILY [facility] Last Admin: 01/05/18 09:01 Dose: 2.5 mg Metformin HCl (Glucophage) 500 mg PO DAILY [facility] Last Admin: 01/05/18 09:02 Dose: 500 mg Pantoprazole Sodium (Protonix Ec Tab) 40 mg PO DAILY [facility] Last Admin: 01/05/18 09:01 Dose: 40 mg Pramipexole Dihydrochloride (Mirapex) 1.5 mg PO Q8 [facility] Last Admin: 01/05/18 08:58 Dose: 1.5 mg Risperidone (Risperdal Tab) 1 mg PO DAILY [facility] Last Admin: 01/03/18 11:59 Dose: Not Given Sucralfate (Carafate Tab) 1 gm PO TID [facility] Last Admin: 01/05/18 12:56 Dose: 1 gm Tamsulosin HCl (Flomax) 0.4 mg PO QPM [facility] Last Admin: 01/04/18 17:51 Dose: 0.4 mg - Labs Labs: 01/05/18 06:00 01/05/18 06:00 PT 12.6 Seconds (9.8-13.1) 01/02/18 12:22 INR 1.1 01/02/18 12:22 APTT 40.4 Seconds (25.6-37.1) H 01/02/18 12:22 Assessment and Plan - Assessment and Plan (Free Text) Assessment: Patient was personally seen and examined by me in rounds with residents. Available labs and diagnostic data reviewed. Case, Patient's condition and management plan discussed with residents in rounds. Agree with resident's progress note. Plan: As ordered.
[2018-01-04] MEDS ORDERED: Sodium Chloride 0.45% 1,000 ML IV SCH (10:30)
[2018-01-04] MEDS: Pantoprazole 40 mg EC Tab PO SCH (10:35)
[2018-01-04] MEDS: Enoxaparin 40 mg Syringe SC SCH (10:36)
[2018-01-04] MEDS: Sodium Chloride 0.45% 1,000 ML IV SCH (20:15)
--- NOTE | 2018-01-04 20:16 | PCM.RRT ---
<Karen Young - Last Filed: 01/04/18 23:53> Plan - Assessment of Findings&Treatment Plan Patient seen and evaluated with Dr. Mayra Weller, , PGY-1 TEXTILE TECHNICAL OFFICER called by RN TEXTILE TECHNICAL OFFICER called at 7:45pm Response time: 7:47pm 57 y/o M with hx of Parkinson's Disease was admitted for rhabdomyolysis with elevated CPK s/p fall. TEXTILE TECHNICAL OFFICER was called because patient c/o nonradiating left sided chest pain, 6/10 in nature. Denied any fever, chills or dyspnea. Initial VS:BP- 145/72 P-92bpm spo2-96% on 2L of NC Physical exam: Nondiaphoretic male laying supine in bed in no acute distress Chest: s1s2 RRR, no murmurs Lungs: cta b/l ABD:BS+, soft, nontender Ext: calves nontender Interventions: 325mg of Aspirin, 2mg of morphine & sublingual nitro given (chest pain decreased to 4/10) -STAT EKG showed no acute changes -Fluids were increased to 100cc/hr End VS: 136/75 P-94bpm spo2-96% on 2L of NC A/P: 57 y/o M with hx of Parkinson's Disease was admitted for rhabdomyolysis with elevated CPK s/p fall with TEXTILE TECHNICAL OFFICER called bc of chest pain. -Initial EKG showed no acute changes. FU EKG Q6. -Labs ordered: FU CBC, CMP, CPK & Troponins Q6 x 3. -Continue med-surg admission. - <Ravinder Nunez - Last Filed: 01/05/18 05:50> TEXTILE TECHNICAL OFFICER Nurse Assessment - Vital Signs Vital Signs: Rapid Response Vital Sign Blood Pressure 141/70 Pulse Rate 96 Respiratory Rate 24 Temperature 98.4 F Oxygen Saturation 98 - Vital Signs at end of TEXTILE TECHNICAL OFFICER Vital Signs at end of TEXTILE TECHNICAL OFFICER: Rapid Response End Vital Sign Blood Pressure 128/67 Pulse Rate 94 Respiratory Rate 28 Temperature 98.5 F O2 Sat by Pulse Oximetry 96 Attending/Attestation - Attestation I have personally seen and examined this patient.: Yes I have fully participated in the care of the patient.: Yes I have reviewed all pertinent clinical information, including history, physical exam and plan: Yes Notes (Text): Patient seen and examined with the residents, agree with above TEXTILE TECHNICAL OFFICER for chest pain, new onset chest pain improved after ASA and morphine EKG with no acute ischemic changes. Troponins Continue to monitor closely and may consult cardiology if pain continues Translation provided by language line - via visual broom maker over an ipad
[2018-01-04 20:43] LABS: ALB/GLOB RATIO 1.2 (1.0-2.1); ALBUMIN 3.8 g/dL (3.5-5.0); ALT/SGPT 33 U/L (21-72); AST/SGOT 31 U/L (17-59); BASO % 0.6 % (0.0-2.0); BLOOD UREA NITROGEN 12 mg/dl (9-20); CALCIUM 9.2 mg/dL (8.4-10.2); EOS # 0.3 K/uL (0.0-0.7); EOS % 4.4 % (0.0-4.0); GFR NON-AFRICAN AMERICAN > 60; HEMOGLOBIN 13.9 g/dL (12.0-18.0); LYMPH # 1.1 K/uL (1.0-4.3); LYMPH % 16.5 % (20.0-40.0); MEAN CELL VOLUME 97.2 fl (80.0-94.0); MEAN CORPUSCULAR HEMOGLOBIN 32.3 pg (27.0-31.0); MEAN CORPUSCULAR HGB CONC 33.3 g/dL (33.0-37.0); MEAN PLATELET VOLUME 9.1 fl (7.2-11.7); MONO # 0.5 K/uL (0.0-0.8); MONO % 7.7 % (0.0-10.0); NEUT # 4.7 K/uL (1.8-7.0); NEUT % 70.8 % (50.0-75.0); NRBC % 0.1 % (0.0-0.0); RBC 4.3 Mil/uL (4.40-5.90); RED CELL DISTRIBUTION WIDTH 13.4 % (11.5-14.5); WHITE BLOOD COUNT 6.7 K/uL (4.8-10.8)
[2018-01-05] MEDS: Carbidopa/Levodopa 25/250 PO SCH ×3 (01:49→17:06)
[2018-01-05] MEDS: Sodium Chloride 0.45% 1,000 ML IV SCH ×2 (01:51→12:55)
[2018-01-05 06:30] LABS: BASO % 0.6 % (0.0-2.0); EOS # 0.4 K/uL (0.0-0.7); EOS % 6.7 % (0.0-4.0); HEMOGLOBIN 13.8 g/dL (12.0-18.0); LYMPH # 1.3 K/uL (1.0-4.3); LYMPH % 23.9 % (20.0-40.0); MEAN CORPUSCULAR HEMOGLOBIN 32.4 pg (27.0-31.0); MEAN CORPUSCULAR HGB CONC 33.4 g/dL (33.0-37.0); MEAN PLATELET VOLUME 9.2 fl (7.2-11.7); MONO # 0.4 K/uL (0.0-0.8); NEUT # 3.3 K/uL (1.8-7.0); NEUT % 60.8 % (50.0-75.0); NRBC % 0.1 % (0.0-0.0); RBC 4.25 Mil/uL (4.40-5.90); RED CELL DISTRIBUTION WIDTH 13.4 % (11.5-14.5); WHITE BLOOD COUNT 5.5 K/uL (4.8-10.8)
[2018-01-05 07:03] LABS: ALB/GLOB RATIO 1.2 (1.0-2.1); ALBUMIN 3.6 g/dL (3.5-5.0); ALT/SGPT 19 U/L (21-72); AST/SGOT 22 U/L (17-59); BLOOD UREA NITROGEN 11 mg/dl (9-20); CALCIUM 9.1 mg/dL (8.4-10.2); GFR NON-AFRICAN AMERICAN > 60; URIC ACID 5.8 mg/Dl (3.5-8.5)
--- NOTE | 2018-01-05 08:41 | PN ---
DATE: 01/04/2018 SUBJECTIVE: This patient is a 57-year-old male, patient of mine for many many years who was brought to the emergency room on 10/06/2017 because the patient fell at home and was unable to get out until at least seven to eight hours. The patient stated that he was somewhat weak and shaking when he was trying to get to the bathroom and he slid and fell. The patient at this time denies any body ache, any headache, or any obvious injury. The patient was admitted under on-call physician, but now I was informed by the family to come to the hospital and to continue to manage the patient for which I did it today. After coming to the floor, the nurse was taking care of this patient in the afternoon. The patient had different tests done since then including a knee x-ray, CT of the head, pelvic x-ray, lumbar spine x-ray that was done in the emergency room and that was practically . Then, the patient has a C-spine x-ray that was again not conclusive. Now, the patient was seen in the evening, and the patient claimed that he is weak, but feels somewhat better and denied any shortness of breath or palpitation. The patient is somewhat mumbling with words, but sometimes it is clear. PHYSICAL EXAMINATION: VITAL SIGNS: BP 145/74, pulse 78, respirations 18, temperature 98.2. NECK: Supple. LUNGS: Clear. HEART: Regular rate and rhythm. ABDOMEN: Soft, obese and nontender. EXTREMITIES: There is some tenderness to the right knee. Also, the patient somewhat has some rigidity of the neck and also to the extremities, which is all related to the patient's history of having Parkinson's. LABORATORY DATA: Labs today showed a WBC 6.7, hemoglobin 13.9, hematocrit 41.8, and platelets 203. Chemistry showed a sodium of 140, potassium 4, chloride 106, bicarb is 22, BUN 12, creatinine 0.9, and glucose 140. The CPK is only 203, which is very low at this point with comparison. It is high but is still not extremely high. The patient's CPK on admission was 368. ASSESSMENT AND PLAN: The patient was admitted with history of rhabdomyolysis, Parkinson's disease, hypertension, also constipation and gastroesophageal reflux disease. The patient has a neurology consult that was done earlier. The plan is that we are going to continue the current treatment, but we are going to add uric acid and blood work for tomorrow including physical therapy. Landon Patel MD
[2018-01-05] MEDS: Enoxaparin 40 mg Syringe SC SCH (08:59)
[2018-01-05] MEDS: Pantoprazole 40 mg EC Tab PO SCH (09:01)
[2018-01-05] MEDS: Insulin Regular 100 units/ml SC SCH ×4 (09:02→23:37)
--- NOTE | 2018-01-05 12:58 | CARD ---
APPROVED REPORT Date of service: 01/04/2018 EKG Measurement Heart [id number] <Conclusion> Normal sinus rhythm Normal ECG
--- NOTE | 2018-01-05 13:58 | CARD ---
APPROVED REPORT Date of service: 01/05/2018 EXAM: Two-dimensional and M-mode echocardiogram with Doppler and color Doppler. Other Information Quality : GoodRhythm : NSR INDICATION Chest Pain Elevated CPK 2D DIMENSIONS IVSd1.29 (0.7-1.1cm)LVDd4.44 (3.9-5.9cm) LVOT Diameter2.78 (1.8-2.4cm)PWd0.96 (0.7-1.1cm) IVSs1.54 (0.8-1.2cm)LVDs2.66 (2.5-4.0cm) FS (%) 40.1 %PWs1.31 (0.8-1.2cm) M-Mode DIMENSIONS Left Atrium (MM)4.31 (2.5-4.0cm)IVSd0.94 (0.7-1.1cm) Aortic Root3.59 (2.2-3.7cm)LVDd5.69 (4.0-5.6cm) Aortic Cusp Exc.2.16 (1.5-2.0cm)PWd1.16 (0.7-1.1cm) IVSs1.56 cmFS (%) 45 % LVDs3.16 (2.0-3.8cm)PWs1.78 cm Aortic Valve AoV Peak Monpkorz158.4cm/sAoV VTI27.9cmAO Peak GR.10mmHg LVOT Peak Ujvqhlse542.8cm/sLVOT VTI22.07cmAO Mean GR.5mmHg TITA (VMAX)1.15zn5GFG (VTI)2.28cm2 Mitral Valve MV E Rpxaqyxc48.5cm/sMV DECEL [id number] A Nbxsjymy91.2cm/s MV WBG19awY/A ratio1.1MVA (PHT)3.05cm2 TDI Lateral E' Peak V12.47cm/sMedial E' Peak V7.58cm/sE/Lateral E'5.6 E/Medial E'9.2 LEFT VENTRICLE The left ventricle is normal size. There is normal left ventricular wall thickness. The left ventricular systolic function is normal. The estimated ejection fraction is 60-65% No regional wall motion abnormalities noted.. Transmitral Doppler flow pattern is Grade I-abnormal relaxation pattern. No left ventricle thrombus noted on this study. There is no ventricular septal defect visualized. There is no left ventricular aneurysm. There is no mass noted in the left ventricle. RIGHT VENTRICLE The right ventricle is normal size. There is normal right ventricular wall thickness. The right ventricular systolic function is normal. ATRIA The left atrium is mildly dilated. The right atrium size is normal. The interatrial septum is intact with no evidence for an atrial septal defect. AORTIC VALVE The aortic valve is normal in structure. No aortic regurgitation is present. There is no aortic valvular stenosis. There is no aortic valvular vegetation. MITRAL VALVE The mitral valve is normal in structure. There is no evidence of mitral valve prolapse. There is no mitral valve stenosis. There is no mitral valve regurgitation noted. TRICUSPID VALVE The tricuspid valve is normal in structure. There is trace tricuspid valve regurgitation noted. There is no tricuspid valve prolapse or vegetation. There is no tricuspid valve stenosis. PULMONIC VALVE The pulmonary valve is normal in structure. There is no pulmonic valvular regurgitation. There is no pulmonic valvular stenosis. GREAT VESSELS The aortic root is normal in size. The ascending aorta is normal in size. The pulmonary artery is normal. The IVC is normal in size and collapses >50% with inspiration. PERICARDIAL EFFUSION There is no pericardial effusion. There is no pleural effusion. <Conclusion> The estimated ejection fraction is 60-65% Transmitral Doppler flow pattern is Grade I-abnormal relaxation pattern. The left atrium is mildly dilated. There is trace tricuspid valve regurgitation noted.
[2018-01-06] MEDS: Carbidopa/Levodopa 25/250 PO SCH ×3 (00:29→16:41)
--- NOTE | 2018-01-06 01:07 | PN ---
DATE: 01/05/2018 SUBJECTIVE: Today, the patient is more alert and awake. He denied any shortness of breath or chest pain at this time, and the patient remains awake. PHYSICAL EXAMINATION: VITAL SIGNS: The patient has a blood pressure of 142/81, pulse 71, respirations 18, temperature 98.7. NECK: Stiffness LUNGS: Clear. HEART: Regular rate and rhythm. ABDOMEN: Soft. Nontender but obese. EXTREMITIES: No edema. There is some stiffness of the upper and lower extremities and fine tremors. LABORATORY DATA: Labs showed WBC 5.2, hemoglobin 13.8, hematocrit 41.2, and platelets is 183. Chemistry sodium 141, potassium 4, chloride 105, bicarb is 24, BUN 11, creatinine 0.7, and glucose 102. Uric acid is 5.8. Calcium 9.1. AST 22, ALT 19, alkaline phosphatase 90, and CK is 149 now which is normal. The plan is to consider to send the patient to rehab and advised to go to either TCU or subacute rehab. The case was discussed with nurse practitionerSamantha. Landon Patel MD
[2018-01-06] MEDS: Insulin Regular 100 units/ml SC SCH ×4 (06:32→23:01)
[2018-01-06] MEDS: Enoxaparin 40 mg Syringe SC SCH (09:06)
[2018-01-06] MEDS: Pantoprazole 40 mg EC Tab PO SCH (09:07)
[2018-01-07] MEDS: Carbidopa/Levodopa 25/250 PO SCH ×2 (00:42→10:23)
[2018-01-07] MEDS: Insulin Regular 100 units/ml SC SCH ×3 (07:00→22:21)
[2018-01-07] MEDS: Enoxaparin 40 mg Syringe SC SCH (10:21)
[2018-01-07] MEDS: Pantoprazole 40 mg EC Tab PO SCH (10:23)
[2018-01-08] MEDS: Carbidopa/Levodopa 25/250 PO SCH ×3 (00:38→16:22)
[2018-01-08] MEDS: Insulin Regular 100 units/ml SC SCH ×4 (06:44→22:44)
--- NOTE | 2018-01-08 06:54 | PN ---
DATE: 01/07/2018 SUBJECTIVE: Today, the patient is still complaining of generalized weakness and some epigastric pain. Denies any shortness of breath. He is still complaining of generalized weakness. PHYSICAL EXAMINATION: VITAL SIGNS: The patient has a blood pressure of 130/80, pulse 79 to 99, temperature 97.3. NECK: Supple. No JVD. LUNGS: Poor respiratory effort. CARDIOPULMONARY: Regular rate and rhythm. ABDOMEN: Soft and nontender. Positive bowel sounds. EXTREMITIES: Stiffness of the joints of the elbows and knees. Also, the patient has slight stiffness on the neck. ASSESSMENT AND PLAN: The plan is that we need the patient to have a physical therapy is somewhat resolved, but the patient still does not want to go and attend again. We discussed the patient about the need for physical therapy to go to home. Landon Patel MD
[2018-01-08] MEDS: Pantoprazole 40 mg EC Tab PO SCH (09:07)
[2018-01-08] MEDS: Enoxaparin 40 mg Syringe SC SCH (09:09)
--- NOTE | 2018-01-08 09:22 | PN ---
DATE: 01/06/2018 SUBJECTIVE: Today, the patient is alert and awake, but complaining of generalized weakness and some knee pain. The patient, however, feels somewhat better than yesterday. PHYSICAL EXAMINATION: GENERAL: The patient has a blood pressure of 127/78, pulse 77, respirations 20, and temperature 98.2. NECK: Has stiffness of the neck. LUNGS: Clear. HEART: Regular rate and rhythm. ABDOMEN: Soft, nontender. EXTREMITIES: There is no edema, but there is unsteady gait. LABORATORY DATA: The lab drawn has shown that the WBC is 5.5, hemoglobin 13.8, hematocrit 41, and platelet is 183. Chemistry shows the sugar is 220. ASSESSMENT AND PLAN: The plan is that continue current medications, and then we -will consider to send the patient to rehabilitation and the patient is still hesitant to go. Landon Patel MD
[2018-01-09] MEDS: Carbidopa/Levodopa 25/250 PO SCH ×3 (01:02→17:15)
[2018-01-09] MEDS: Insulin Regular 100 units/ml SC SCH ×4 (06:36→22:12)
[2018-01-09 06:47] LABS: BASO % 0.7 % (0.0-2.0); EOS # 0.4 K/uL (0.0-0.7); EOS % 6.1 % (0.0-4.0); HEMOGLOBIN 14.9 g/dL (12.0-18.0); LYMPH # 1.1 K/uL (1.0-4.3); LYMPH % 18.3 % (20.0-40.0); MEAN CELL VOLUME 97.8 fl (80.0-94.0); MEAN CORPUSCULAR HEMOGLOBIN 32.3 pg (27.0-31.0); MEAN PLATELET VOLUME 9.2 fl (7.2-11.7); MONO # 0.5 K/uL (0.0-0.8); MONO % 8.3 % (0.0-10.0); NEUT # 4.1 K/uL (1.8-7.0); NEUT % 66.6 % (50.0-75.0); NRBC % 0.2 % (0.0-0.0); RBC 4.6 Mil/uL (4.40-5.90); RED CELL DISTRIBUTION WIDTH 13.3 % (11.5-14.5); WHITE BLOOD COUNT 6.1 K/uL (4.8-10.8)
[2018-01-09 07:02] LABS: ALB/GLOB RATIO 1.4 (1.0-2.1); ALBUMIN 4.4 g/dL (3.5-5.0); ALT/SGPT 19 U/L (21-72); AST/SGOT 20 U/L (17-59); BLOOD UREA NITROGEN 20 mg/dl (9-20); CALCIUM 10.1 mg/dL (8.4-10.2); GFR NON-AFRICAN AMERICAN > 60
--- NOTE | 2018-01-09 08:05 | PN ---
DATE: 01/08/2018 SUBJECTIVE: Today, the patient is more alert and awake and he is still weak. Denies any shortness of breath or chest pain. However, the patient admits feeling very weak. PHYSICAL EXAMINATION: VITAL SIGNS: Blood pressure is 124/83, pulse is 90, respirations 18, and temperature 97.7. NECK: Mild stiffness, which is old. LUNGS: Clear. HEART: Regular rate and rhythm. ABDOMEN: Obese. Mild tenderness and positive bowel sounds. EXTREMITIES: There is no edema noted at this point, but now there is some mild rigidity in the lower extremities near the joint. ASSESSMENT AND PLAN: The plan is that we are going to try to send the patient to subacute rehab. Case was discussed with family and the plan is to go to . Landon Patel MD
[2018-01-09] MEDS: Enoxaparin 40 mg Syringe SC SCH (08:48)
[2018-01-09] MEDS: Pantoprazole 40 mg EC Tab PO SCH (08:49)
[2018-01-09] MEDS: Simethicone 80 mg Chewtab PO SCH (22:02)
[2018-01-10] MEDS: Carbidopa/Levodopa 25/250 PO SCH ×3 (00:29→17:27)
--- NOTE | 2018-01-10 06:22 | PN ---
DATE: 01/09/2018 SUBJECTIVE: Today, the patient is more alert and awake, is sitting on the chair at the bedside. Denies any shortness of breath or chest pain. PHYSICAL EXAMINATION VITAL SIGNS: The patient has a blood pressure of 127/81, pulse 80, respirations 18, temperature 97.5. NECK: Supple. Neck is flat and distended. LUNGS: Clear. HEART: Regular rate and rhythm. Positive murmur. ABDOMEN: Soft. No tenderness in the abdomen. Has some rigidity noted. PLAN: treatment. We will send the patient to subacute rehab. The case was discussed with the nurse practitioner. Landon Patel MD
[2018-01-10] MEDS: Insulin Regular 100 units/ml SC SCH ×2 (09:43→13:07)
[2018-01-10] MEDS: Simethicone 80 mg Chewtab PO SCH ×2 (09:44→17:26)
[2018-01-10] MEDS: Enoxaparin 40 mg Syringe SC SCH (09:44)
[2018-01-10] MEDS: Pantoprazole 40 mg EC Tab PO SCH (09:45)
[2018-01-11] MEDS: Carbidopa/Levodopa 25/250 PO SCH ×2 (00:59→09:39)
[2018-01-11] MEDS: Insulin Regular 100 units/ml SC SCH ×3 (01:01→13:01)
[2018-01-11 01:50] VITALS: RESP 19; O2SAT 95
--- NOTE | 2018-01-11 06:32 | PN ---
DATE: 01/10/2018 SUBJECTIVE: Today, the patient is more alert and awake. No numbness or tremor. No shortness of breath. No chest pain. No abdominal pain. PHYSICAL EXAMINATION: VITAL SIGNS: Blood pressure is 101/68, pulse is 108 at time and 81. HEART: Regular rate and rhythm. ABDOMEN: Soft and nontender. NECK: The patient has neck stiffness. EXTREMITIES: There is mild stiffness of the elbows. NEUROLOGIC: The patient has unsteady gait. ASSESSMENT AND PLAN: The plan is to send the patient to rehab, but waiting for the daughter to consent. We will try to get the phone number that was given , so we are going to try to reach the sister in the morning. Landon Patel MD
[2018-01-11 08:05] VITALS: BP 118/80; PULSE 79; TEMP 98
[2018-01-11] MEDS: Simethicone 80 mg Chewtab PO SCH (09:39)
[2018-01-11] MEDS: Pantoprazole 40 mg EC Tab PO SCH (09:40)
[2018-01-11] MEDS: Enoxaparin 40 mg Syringe SC SCH (09:41)
--- NOTE | 2018-01-11 13:05 | CP.PCM.PCO ---
Assessment/Plan - Assessment/Plan Assessment (Free Text): Patient's sister was contacted yesterday by JULIETA Danielle RN and Zabrina Mejia RN who helped translate in Hebrew. Patient's sister says she will take patient home as patient is refusing to go to [facility]. Patient stable, seen and cleared for d/c home by Dr. Patel. CM to arrange for VNS and home PT. Patient to resume home meds as per med rec.
--- NOTE | 2018-01-12 12:21 | PN ---
DATE: 01/11/2018 SUBJECTIVE: Today, the patient is more alert and awake. Denied any chest pain or shortness of breath. The patient was found to be out of bed to chair today. PHYSICAL EXAMINATION VITAL SIGNS: The patient has a blood pressure of 118/80, pulse 79, respirations 19, temperature 98 degrees Fahrenheit. NECK: Slight stiffness. LUNGS: Clear. HEART: Regular rate and rhythm. ABDOMEN: Soft. No tenderness. Positive obesity. EXTREMITIES: There is no edema noted. NEUROLOGIC: There is stiffness of the joint of the elbows. There is also unsteady gait. PLAN: The patient needs to go to rehab, but apparently the patient, family and sister have refused rehab, so we will send the patient home on home physical therapy. Landon Patel MD
== END 2018-01-11 16:20 | disposition home health service (06) | DRG 566 ==
LOC: H.ER 10:47 → H.ERHOLD 15:20 → H.MEDSURG1 20:23
PROVIDERS: ADMIT Specialist; ATTEND Specialist
DX: T79.6XXA Traumatic ischemia of muscle, initial encounter (principal); G20 Parkinson's disease; I10 Essential (primary) hypertension; I25.10 Atherosclerotic heart disease of native coronary artery without angina pectoris; R07.9 Chest pain, unspecified; E78.00 Pure hypercholesterolemia, unspecified; K21.9 Gastro-esophageal reflux disease without esophagitis; W06.XXXA Fall from bed, initial encounter; F32.9 Major depressive disorder, single episode, unspecified; J45.909 Unspecified asthma, uncomplicated; K59.00 Constipation, unspecified; M19.90 Unspecified osteoarthritis, unspecified site; Y92.003 Bedroom of unspecified non-institutional (private) residence as the place of occurrence of the external cause; Z86.73 Personal history of transient ischemic attack (TIA), and cerebral infarction without residual deficits; Z79.01 Long term (current) use of anticoagulants; Z79.84 Long term (current) use of oral hypoglycemic drugs